=== PATIENT | female | born 1950 | race Caucasian/White ===

== ENCOUNTER 2020-06-05 01:15 | Outpatient (CLI) | payer MEDICARE, SELFPAY ==
[2020-06-06 03:00] LABS: SARS-CoV-2 RNA PCR Negative
== END 2020-06-05 01:16 | disposition home or self-care (01) ==
LOC: ANHCOVIDDT 01:15
PROVIDERS: Visit Provider Podiatrist Foot & Ankle Surgery
DX: Z01.812 Encounter for preprocedural laboratory examination (principal); Z20.828 Contact with and (suspected) exposure to other viral communicable diseases
CPT/HCPCS: 87635; C9803; U0003

== ENCOUNTER 2020-06-05 09:20 | Outpatient (CLI) | payer MEDICARE, SELFPAY ==
--- NOTE | 2020-06-05 09:24 | ECG_ITS ---
Measurements Intervals [place] Rate: 66 P: 46 SD: 141 QRS: 28 QRSD: 86 T: 30 QT: 407 QTc: 426 Interpretive Statements SINUS RHYTHM DELAYED PRECORDIAL R/S TRANSITION NONSPECIFIC T-WAVE ABNORMALITY- ANTERIOR LEADS BASELINE ARTIFACT- I, II, III, AVR, AVL, AVF BORDERLINE ECG Electronically Signed On 06-05-2020 9:35:18 CERTIFIED TRAVEL COUNSELOR by Jose Ramon Allen D.O.
== END 2020-06-05 09:21 | disposition home or self-care (01) ==
LOC: ANHSURGERY 09:24
PROVIDERS: PCP Internal Medicine; Visit Provider Podiatrist Foot & Ankle Surgery
DX: Z01.810 Encounter for preprocedural cardiovascular examination (principal); I51.9 Heart disease, unspecified; M13.871 Other specified arthritis, right ankle and foot
CPT/HCPCS: 87635; 93005; C9803; U0003

== ENCOUNTER 2020-06-07 02:34 | Day surgery (SDC) | payer MEDICARE, SELFPAY ==
[2020-05-29 14:53] VITALS: BMI 29.1
--- NOTE | 2020-06-06 16:20 | WPDANESEPPF ---
Anes - Initial Pre Proc Eval Procedure: Operation Date: 06/07/20 11:00 Proposed Procedures p Arthrodesis Of First Metatarsal Cuneiform Joint Right Foot - Wiley Davis JR, MD Date/Time: 06/06/20 16:20 Surgeon: Wiley Davis JR, MD Pre Op Diagnosis: Arthritis Right Foot Patient Data Age: 70 Gender: F Height: 1.63 m Weight: 77 kg Allergies Allergy/AdvReac Type Severity Reaction Status Date / Time Cephalosporins Allergy Hives Verified 05/29/20 14:36 Penicillins Allergy Hives Verified 05/29/20 14:36 Home Medications Medication Instructions Recorded Confirmed Type albuterol sulfate 90 mcg/actuation 1 puff INHALATION Q4H PRN 04/04/20 05/29/20 History aerosol inhaler clobetasol 0.05 % scalp solution 1 applic TOPICAL DAILY 04/04/20 05/29/20 History hydrocodone 7.5 mg-acetaminophen 1 tablet PO TID PRN 04/04/20 05/29/20 History 300 mg tablet ipratropium 0.5 mg-albuterol 3 mg 3 ml INHALATION Q6H PRN 04/04/20 05/29/20 History (2.5 mg base)/3 mL nebulization soln levothyroxine 112 mcg capsule 112 mcg PO QAM 04/04/20 05/29/20 History abizln-ciahebmi-czlvlfs 1 cap PO TIDWMEAL cap 04/04/20 05/29/20 History 10,000-30,000-30,000 unit capsule,delayed rel naloxegol 25 mg tablet 25 mg PO QAM 04/04/20 05/29/20 History naloxone 4 mg/actuation nasal spray 1 spray NASAL Q2-3M PRN 04/04/20 05/29/20 History ondansetron 4 mg disintegrating 4 mg PO Q8H PRN 04/04/20 05/29/20 History tablet tamsulosin 0.4 mg capsule 0.4 mg PO DAILY 04/04/20 05/29/20 History cholecalciferol (vitamin D3) 1,250 1,250 mcg PO WEEKLY 04/16/20 05/29/20 History mcg (50,000 unit) tablet pregabalin 75 mg capsule 75 mg PO BID 09/15/20 10/28/20 History alprazolam 0.5 mg PO BID PRN 05/29/20 05/29/20 History cholecalciferol (vitamin D3) 4,000 unit PO DAILY 05/29/20 05/29/20 History [Vitamin D3] diclofenac sodium [Voltaren] 2 gm TOPICAL QID PRN 05/29/20 05/29/20 History Patient hx anesthesia problems: none Family hx anesthesia problems: none [facility] Past Medical History Medical History (Updated 06/06/20 @ 16:23 by Johnathon White MD) VÍCTOR positive Asthma Chronic narcotic use Colitis COPD (chronic obstructive pulmonary disease) Depression DJD (degenerative joint disease) Dyslipidemia GERD (gastroesophageal reflux disease) Hyperlipemia Hypertension Hypothyroidism Insomnia Joint pain Migraine Pacemaker 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) Psoriasis PVD (peripheral vascular disease) Surgical History Surgical History H/O thyroidectomy H/O: hysterectomy History of back surgery Hx of cholecystectomy S/P arteriovenous (AV) fistula repair S/P hernia repair Family History Family History Mother Heart disease Heart attack Father Heart attack Grandparent Cerebrovascular accident Social History Social History Smoking packs per day: 1 Smoking cigarettes per day: 20.0 Years smoked: 48 Smoking pack-years: 48.00 Smoking status: Former smoker Tobacco type: cigarettes Smoking end date: 01/31/16 Alcohol intake: former Alcohol use details: VERY RARELY Substance use: never Living arrangements: alone Additional occupation/education comments: Disabled Gender identity (if verbalized by the patient): Female Spiritual care concerns: No Agree to blood products: Yes Anes - Eval Final PreProcedure Day of Procedure 06/06/20 16:20 Patient weight: obese Heart: regular rate and rhythm Lungs: clear to auscultation and normal air movement Airway: Mallampati scale class II Neurological: alert and oriented Last oral intake: >/= 8 hours ASA classification: III Emergent: no Anesthetic plan: proceed Anesthesia type and monitoring: general LMA Informed Consent: The arielle
[2020-06-07] VITALS (9 sets, daily range): BP systolic 86–149; BP diastolic 51–84; PULSE 60–80; RESP 12–20; TEMP 36.4–36.6; O2SAT 93–100
--- NOTE | ~2020-06-07 | XR_ITS ---
EXAMINATION: XR surgery orthopedic DATE: 06/07/2020 12:44 INDICATION: Right first tarsal metatarsal arthrodesis TECHNIQUE: Dorsal plantar and lateral fluoroscopic images of the right mid and forefoot were obtained during procedure performed by Dr. Davis. Radiologist was not present for the imaging or procedure . The amount of fluoroscopy time used during this procedure was 0.1 minutes. COMPARISON: None. FINDINGS: First tarsal metatarsal arthrodesis with a pair fixation chandrika. Alignment remains essentially anato jahaira. There is cortical thickening along the distal diaphysis of the second metatarsal suggesting old healed fracture. No acute fracture. Unfused joint spaces appear relatively preserved. IMPRESSION: 1. Right first tarsal metatarsal arthrodesis with staple fixation in essentially anatomic alignment. 2. Likely old healed fracture of the distal diaphysis of the second metatarsal. Reviewed, dictated and finalized at location A. E[employer] SOCIAL WORKER IMPRESSION: 1. Right first tarsal metatarsal arthrodesis with staple fixation in essentiall y anatomic alignment. 2. Likely old healed fracture of the distal diaphysis of the second metatarsal.
--- NOTE | 2020-06-07 07:18 | WPDHPUPDATE1 ---
History and Physical Update Update Date/Time: 06/07/20 07:18 History and Physical has been reviewed, including an updated exam of the patient. There are NO changes in the patient's condition. Risks, benefits, and alternatives have been discussed and questions answered. Patient agrees to proceed with procedure.
[2020-06-07] MEDS: LACTATED RINGERS 1,000 ML 30 ML IV CONT (10:25)
[2020-06-07] MEDS: CLINDAMYCIN 900 MG/D5W 50 ML 900 MG/50 ML PIGGYBACK 50 MG IVPB (11:51)
--- NOTE | 2020-06-07 13:05 | PM.OP ---
Procedure Note - Brief Procedure Note - Brief Date of procedure: 06/07/20 Pre-op diagnosis: Arthritis Right Foot Post-op diagnosis: same Procedure performed: Arthrodesis of the first metatarsal cuneiform joint right foot Anesthesia: GLMA Surgeon: Wiley Davis JR, DPM Estimated blood loss (mL): 1 Complications: No immediate complications Condition: stable Disposition: same day
[2020-06-07] MEDS: fentaNYL CITRATE INJ (*CRX) 100 MCG/2 ML VIAL 25 MCG IV PUSH ×3 (13:32→13:50)
--- NOTE | 2020-06-07 13:43 | OP_ITS ---
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 PROCEDURE: Arthrodesis of the 1st metatarsocuneiform joint, right foot. PATHOLOGY: None. ANESTHESIA: General LMA with local. HEMOSTASIS: Pneumatic ankle tourniquet at 250 mmHg. ESTIMATED BLOOD LOSS: Minimal. MATERIALS USED: 1 [email or web address] joint prep system, 1 [email or web address] 20 x 20 mm Nitinol compression staple, one 18 x 16 mm [email or web address] Nitinol compression staple, 3-0 Vicryl, 4-0 Vicryl, and 4-0 Monocryl. INJECTABLES: 20 cc of Exparel injected preoperatively. COMPLICATIONS: None. PROCEDURE IN DETAIL: Under mild sedation, the patient was brought into the operating room, placed on the operating table in the supine position. Pneumatic ankle tourniquet was placed about the patient's right ankle. Following general anesthesia, local anesthesia was obtained about the right lower extremity utilizing 20 cc of Exparel. The foot was then scrubbed, prepped, and draped in the usual aseptic manner. An Esmarch bandage was then used to exsanguinate the patient's right foot and the pneumatic ankle tourniquet was then inflated. Surgery began in the following manner: An incision was made along the dorsal aspect of the 1st metatarsocuneiform joint of the right foot where an incision was made just medial to the extensor hallucis longus tendon atop the 1st metatarsocuneiform joint. Incision was continued deep down through the subcutaneous tissues using sharp and blunt dissection. All bleeders were cauterized as necessary. At this point, a full length periosteal incision was made overlying the 1st metatarsocuneiform joint the full length of the skin incision. Utilizing a aviles elevator, the periosteal tissue was reflected off the base of the 1st metatarsal as well as the anterior aspect of the medial cuneiform joint. At this point, a 0.062 inch K-wire was driven from dorsal to plantar across the medial cuneiform as well as the base of the 1st metatarsal. A INNJOY [employer] joint distractor was used to distract the joint and expose the 1st metatarsocuneiform joint. There was significant denudation of cartilage with hypertrophy and sclerosis of the 1st metatarsocuneiform joint. A rongeur was used to resect any hypertrophic bone. Next, utilizing the [email or web address] joint preparation system, the curved sharp osteotome was used to resect all remaining degenerative articular cartilage. Next, a curette was used to resect the plantar aspect of the 1st metatarsocuneiform joint. At this point, a 2-0 drill bit was used to fenestrate the anterior aspect of the medial cuneiform as well as the base of the 1st metatarsal. Furthermore, a small osteotome was also used to fish scale the 1st metatarsal cuneiform, anterior aspect of the medial cuneiform as well as the base of the 1st metatarsal. At this point, the joint distractor was released and removed along with the K-wire that was driven from top to bottom across the medial cuneiform as well as the base of the 1st metatarsal. Next, utilizing standard principles and techniques, a [email or web address] 20 x 20 mm Nitinol compression staple was driven from dorsal to plantar atop the 1st metatarsocuneiform joint, 2nd an 18 x 16 mm Nitinol compression staple was driven from medial to lateral across the 1st metatarsocuneiform joint. Excellent compression was noted on AP and lateral views. The wound site was flushed with copious amounts of sterile saline. The periosteal structures were reapproximated and coapted utilizing 3-0 Vicryl and next the subcutaneous structures were reapproximated and coapted utilizing 4-0 Vicryl. Next, the skin was reapproximated and coapted utilizi
[2020-06-07] MEDS: oxyCODONE HCL (*CRX) 5 MG TAB IR PO (14:34)
== END 2020-06-07 15:00 | disposition home or self-care (01) ==
PROVIDERS: PCP Internal Medicine; Visit Provider Podiatrist Foot & Ankle Surgery
PROC: (CPT 28750; principal; 2020-06-07 11:00)
DX: M19.071 Primary osteoarthritis, right ankle and foot (principal); I10 Essential (primary) hypertension; E78.5 Hyperlipidemia, unspecified; J44.9 Chronic obstructive pulmonary disease, unspecified; E03.9 Hypothyroidism, unspecified; F32.9 Major depressive disorder, single episode, unspecified; G62.89 Other specified polyneuropathies; I73.9 Peripheral vascular disease, unspecified; Z95.0 Presence of cardiac pacemaker; Z87.891 Personal history of nicotine dependence; E66.9 Obesity, unspecified; Z68.28 Body mass index [BMI] 28.0-28.9, adult
CPT/HCPCS: 28740; A9270; C9290; J0131; J2250; J3010; J7120